=== PATIENT | male | born 1935 | race Caucasian/White ===

== ENCOUNTER 2018-08-16 17:50 | Inpatient (IN) | payer MEDICARE, MEDICAID ==
[~2018-08-16] VITALS: Ht 172.7 cm; Wt 64.6 kg
[~2018-08-16 17:50] MED LIST: AMLO10TA4 PO; CRANBERRY CAPSULE PO; DOCU-138 PO; DONE10TA11 PO; MEMA10TA2 PO; NEPVIT PO; NIAC1000 PO; OLAN7.5T3 PO; OSCAL D PO; TRAM50TA94 PO; VITAMIN B 1 PO
[2018-08-16 19:13] LABS: BASOPHILS % 0.6 % (0.0-2.0); EOSINOPHILS % 5.6 % (0.0-5.0); LYMPHOCYTES % 21.2 % (20.0-50.0); MEAN CORPUSCULAR HEMOGLOBIN 28.4 pg (28.0-32.0); MEAN CORPUSCULAR VOLUME 87.9 fL (80.0-94.0); MEAN PLATELET VOLUME 8.2 fl (7.4-10.4); MONOCYTES % 9.6 % (2.0-8.0); PLATELET 255 x1000/uL (130-400); RED BLOOD CELL COUNT 2.02 mill/uL (4.7-6.1)
[2018-08-16 19:18] LABS: CHLORIDE 117 mEq/L (98-107)
[2018-08-16 19:23] LABS: HEMOGLOBIN. 5.7 g/dL (14.0-18.0)
[2018-08-16 19:24] LABS: HEMATOCRIT. 17.8 % (42.0-52.0)
[2018-08-16 20:36] LABS: TOTAL IRON BINDING CAPACITY 275 ug/dL (250-450)
[2018-08-16] MEDS ORDERED: ACETAMINOPHEN 650MG/20.3ML UDC GT PRN (21:00)
[2018-08-16] MEDS ORDERED: DOCUSATE SODIUM 100MG CAPSULE PO PRN (21:00)
[2018-08-16] MEDS ORDERED: CLONIDINE 0.1MG TABLET PO PRN (21:00)
[2018-08-16] MEDS ORDERED: DIPHENHYDRAMINE 50MG/ML VIAL IV PRN (21:00)
[2018-08-16] MEDS ORDERED: ACETAMINOPHEN 650MG SUPP PR PRN (21:00)
[2018-08-16] MEDS ORDERED: NA PHOS,M-B/NA PHOS,DI-BA ENEMA 118ML PR PRN (21:00)
[2018-08-16] MEDS ORDERED: ACETAMINOPHEN 325MG TABLET PO PRN (21:00)
[2018-08-16] MEDS ORDERED: MAGNESIUM/ALUMINUM HYDROXIDE/SIMETHICONE 30ML UDC PO PRN (21:00)
[2018-08-16] MEDS ORDERED: IPRATROPIUM/ALBUTEROL 0.5-3(2.5)MG/3ML NEB INH PRN (21:00)
[2018-08-16] MEDS ORDERED: GUAIFENESIN 200MG/10ML SUGAR FREE UDC PO PRN (21:00)
[2018-08-16] MEDS ORDERED: ONDANSETRON HCL 4MG/2ML INJ IV PRN (21:00)
[2018-08-16 21:11] LABS: CLARITY URINE CLEAR (CLEAR); COLOR URINE YELLOW (YELLOW); KETONES URINE NEGATIVE (NEGATIVE); LEUKOCYTE ESTERASE URINE 2+ (NEGATIVE); NITRITE URINE NEGATIVE (NEGATIVE); OCCULT BLOOD URINE NEGATIVE (NEGATIVE); PROTEIN URINE NEGATIVE (NEGATIVE); SPECIFIC GRAVITY URINE 1.008 (1.005-1.030); UROBILINOGEN URINE 0.2 E.U./dL (0.2-1.0)
[2018-08-16 21:48] LABS: VITAMIN B12 SERUM 1189 pg/mL (211-911)
[2018-08-16 21:52] LABS: FOLIC ACID (FOLATE) SERUM > 20.00 ng/mL (>5.38)
[2018-08-16] MEDS ORDERED: SORBITOL 70% SOLN 30ML PO STA (22:26)
[2018-08-17 05:41] LABS: BASOPHILS % 0.7 % (0.0-2.0); EOSINOPHILS % 4.1 % (0.0-5.0); HEMATOCRIT. 27.3 % (42.0-52.0); HEMOGLOBIN. 9.3 g/dL (14.0-18.0); LYMPHOCYTES % 18.2 % (20.0-50.0); MEAN CORPUSCULAR HEMOGLOBIN 29.4 pg (28.0-32.0); MEAN CORPUSCULAR VOLUME 86.2 fL (80.0-94.0); MEAN PLATELET VOLUME 7.9 fl (7.4-10.4); MONOCYTES % 7.9 % (2.0-8.0); NEUTROPHILS % 69.1 % (40.0-76.0); PLATELET 245 x1000/uL (130-400); RED BLOOD CELL COUNT 3.17 mill/uL (4.7-6.1)
[2018-08-17 05:50] LABS: CHLORIDE 123 mEq/L (98-107)
[2018-08-17 05:57] LABS: TOTAL IRON BINDING CAPACITY 293 ug/dL (250-450)
[2018-08-17 05:59] LABS: HDL CHOLESTEROL 59 mg/dL (40-59); LDL CHOLESTEROL 77 mg/dL (5-100)
[2018-08-17 06:05] LABS: PROSTRATE SPECIFIC AG TOTAL 1.81 ng/mL (0.0-4.0)
[2018-08-17 08:45] LABS: CLARITY URINE CLEAR (CLEAR); COLOR URINE YELLOW (YELLOW); KETONES URINE NEGATIVE (NEGATIVE); LEUKOCYTE ESTERASE URINE 2+ (NEGATIVE); NITRITE URINE NEGATIVE (NEGATIVE); OCCULT BLOOD URINE 2+ (NEGATIVE); PROTEIN URINE TRACE (NEGATIVE); SPECIFIC GRAVITY URINE 1.007 (1.005-1.030); UROBILINOGEN URINE 0.2 E.U./dL (0.2-1.0)
[2018-08-17 09:06] LABS: *AMPHETAMINES SCREEN URINE NEGATIVE (NEGATIVE); *BARBITURATES SCREEN URINE NEGATIVE (NEGATIVE); *BENZODIAZEPINES SCREEN URINE NEGATIVE (NEGATIVE); *COCAINE SCREEN URINE NEGATIVE (NEGATIVE); CANNABINOID URINE SCREEN NEGATIVE (NEGATIVE); METHADONE URINE SCREEN NEGATIVE (NEGATIVE); OPIATES URINE SCREEN NEGATIVE (NEGATIVE); PHENCYCLIDINE URINE SCREEN NEGATIVE (NEGATIVE)
[2018-08-17 10:16] VITALS: BP 136/55
[2018-08-17] MEDS ORDERED: MOM MT (11:26)
[2018-08-17] MEDS ORDERED: QUET25TA PO (11:26)
[2018-08-17] MEDS ORDERED: THIA100T13 MT (11:26)
[2018-08-17] MEDS ORDERED: BISA10SU62 RC (11:26)
[2018-08-17] MEDS ORDERED: FEO PR (11:26)
[2018-08-17] MEDS ORDERED: FOLI1TAB87 MT (11:26)
[2018-08-17] MEDS ORDERED: NIAC100T3 PO (11:26)
[2018-08-17] MEDS ORDERED: ACET-2708 MT (11:26)
[2018-08-17] MEDS ORDERED: CARB1TAB2 MT (11:26)
[2018-08-17] MEDS ORDERED: DOCU-138 MT (11:26)
[2018-08-17] MEDS ORDERED: FOLI-43 MT (11:26)
[2018-08-17] MEDS ORDERED: ACET-2178 MT (11:26)
[2018-08-17] MEDS ORDERED: CALC-1030 MT (11:26)
[2018-08-17 12:00] VITALS: BP 141/61
[2018-08-17] MEDS: SODIUM CHLORIDE 0.9% INJ 3ML FLUSH IVF SCH ×2 (12:18→21:05)
[2018-08-17 16:00] VITALS: BP 116/50
[2018-08-17] MEDS: DEXTROSE 5% WATER 1,000 ML IV SCH (17:52)
[2018-08-17 20:00] VITALS: BP 115/53
[2018-08-17] MEDS ORDERED: DEXTROSE 50% WATER 50ML SYRINGE IV PRN (23:45)
[2018-08-18] VITALS (7 sets, daily range): BP systolic 108–132; BP diastolic 48–61
[2018-08-18] MEDS: DEXTROSE 5% WATER 1,000 ML IV SCH ×2 (06:00→17:49)
[2018-08-18] MEDS: SODIUM CHLORIDE 0.9% INJ 3ML FLUSH IVF SCH ×3 (06:00→21:36)
[2018-08-18] MEDS: BLOOD SUGAR DIAGNOSTIC STRIP TEST SCH ×4 (06:07→21:29)
[2018-08-18] MEDS: INSULIN LISPRO 100 UNITS/ML SUBCUT SCH ×4 (06:07→21:36)
[2018-08-18 06:55] LABS: BASOPHILS % 0.6 % (0.0-2.0); EOSINOPHILS % 3.9 % (0.0-5.0); HEMOGLOBIN. 8.1 g/dL (14.0-18.0); LYMPHOCYTES % 18.1 % (20.0-50.0); MEAN CORPUSCULAR HEMOGLOBIN 29.1 pg (28.0-32.0); MEAN CORPUSCULAR VOLUME 85.9 fL (80.0-94.0); MEAN PLATELET VOLUME 7.7 fl (7.4-10.4); MONOCYTES % 8.4 % (2.0-8.0); PLATELET 229 x1000/uL (130-400); RED BLOOD CELL COUNT 2.79 mill/uL (4.7-6.1); RED CELL DISTRIBUTION WIDTH 14.9 % (11.6-14.6)
[2018-08-19 04:00] VITALS: BP 115/63
[2018-08-19] MEDS: SODIUM CHLORIDE 0.9% INJ 3ML FLUSH IVF SCH ×3 (05:49→21:47)
[2018-08-19] MEDS: BLOOD SUGAR DIAGNOSTIC STRIP TEST SCH ×4 (06:29→21:44)
[2018-08-19] MEDS: INSULIN LISPRO 100 UNITS/ML SUBCUT SCH ×4 (06:29→21:00)
[2018-08-19 08:00] VITALS: BP 139/52
[2018-08-19] MEDS: DEXTROSE 5% WATER 1,000 ML IV SCH (09:18)
[2018-08-19 12:00] VITALS: BP 100/46
[2018-08-19 16:00] VITALS: BP 101/46
[2018-08-19 20:00] VITALS: BP 116/53
[2018-08-20] VITALS: BP 116/53
[2018-08-20] MEDS: DEXTROSE 5% WATER 1,000 ML IV SCH ×2 (00:08→13:16)
[2018-08-20 04:00] VITALS: BP 121/52
[2018-08-20] MEDS: SODIUM CHLORIDE 0.9% INJ 3ML FLUSH IVF SCH ×2 (06:42→15:25)
[2018-08-20] MEDS: BLOOD SUGAR DIAGNOSTIC STRIP TEST SCH ×3 (06:58→17:10)
[2018-08-20] MEDS: INSULIN LISPRO 100 UNITS/ML SUBCUT SCH ×3 (06:59→17:40)
[2018-08-20 09:17] LABS: BASOPHILS % 0.5 % (0.0-2.0); EOSINOPHILS % 6.1 % (0.0-5.0); HEMATOCRIT. 25.8 % (42.0-52.0); HEMOGLOBIN. 8.7 g/dL (14.0-18.0); LYMPHOCYTES % 17.1 % (20.0-50.0); MEAN CORPUSCULAR HEMOGLOBIN 29.4 pg (28.0-32.0); MEAN CORPUSCULAR VOLUME 87.6 fL (80.0-94.0); MEAN PLATELET VOLUME 7.8 fl (7.4-10.4); MONOCYTES % 7.3 % (2.0-8.0); PLATELET 225 x1000/uL (130-400); RED BLOOD CELL COUNT 2.94 mill/uL (4.7-6.1); RED CELL DISTRIBUTION WIDTH 14.1 % (11.6-14.6)
[2018-08-20 09:24] LABS: CHLORIDE 117 mEq/L (98-107)
[2018-08-20 12:00] VITALS: BP 115/58
[2018-08-20 16:00] VITALS: BP 124/50
[2018-08-20 18:48] VITALS: BP 124/50
[2018-08-20 20:00] VITALS: BP 111/48
[2018-08-21] MEDS ORDERED: DOCUSATE SODIUM 250MG CAPSULE PO SCH (13:00)
== END 2018-08-20 21:45 | DRG 682 ==
LOC: ER 17:50 → 8WST 20:15 → EDBEDREQ 20:19 → EDBEDREQTM 20:19 → ENRESERV 08-17 07:43
PROVIDERS: ADMIT Family Medicine; ATTEND Family Medicine
PROC: 30233N1 Transfusion of Nonautologous Red Blood Cells into Peripheral Vein, Percutaneous Approach (ICD-10-PCS; principal; 2018-08-16)
DX: N17.9 Acute kidney failure, unspecified (principal); E43 Unspecified severe protein-calorie malnutrition; E87.0 Hyperosmolality and hypernatremia; D50.9 Iron deficiency anemia, unspecified; I12.9 Hypertensive chronic kidney disease with stage 1 through stage 4 chronic kidney disease, or unspecified chronic kidney disease; E78.5 Hyperlipidemia, unspecified; E55.9 Vitamin D deficiency, unspecified; G20 Parkinson's disease; F03.90 Unspecified dementia, unspecified severity, without behavioral disturbance, psychotic disturbance, mood disturbance, and anxiety; E11.22 Type 2 diabetes mellitus with diabetic chronic kidney disease; N18.9 Chronic kidney disease, unspecified; F31.9 Bipolar disorder, unspecified; J44.9 Chronic obstructive pulmonary disease, unspecified; R47.02 Dysphasia; Z68.27 Body mass index [BMI] 27.0-27.9, adult
CPT/HCPCS: 36415; 71045; 76770; 80048; 80061; 80305; 82607; 82728; 82746; 82962; 83540; 83550; 83880; 84153; 84484; 85044; 86850; 86900; 86920; 93005; 99285; J1815; J7040; J7070; P9016; P9021; A4315; G0103

== ENCOUNTER 2019-06-06 22:28 | Inpatient (IN) | payer MEDICARE, MEDICAID ==
[~2019-06-06] VITALS: Ht 172.7 cm; Wt 58.5 kg
[2019-06-06 21:00] VITALS: BP 131/69
[~2019-06-06 22:28] MED LIST changes: +BISA10SU62 RC; +CALC-1030 MT; +CARB1TAB2 MT; +DOCU-138 MT; -DOCU-138 PO; +FEO PR; +FOLI-43 MT; +FOLI1TAB87 MT; +MOM MT; -NEPVIT PO; -NIAC1000 PO; +NIAC100T3 PO; -OLAN7.5T3 PO; -OSCAL D PO; +THIA100T13 MT; +TOPUD MT; -TRAM50TA94 PO; -VITAMIN B 1 PO
[2019-06-06] MEDS ORDERED: ACETAMINOPHEN 325MG TABLET PO PRN (23:00)
[2019-06-06] MEDS ORDERED: CLONIDINE 0.1MG TABLET PO PRN (23:00)
[2019-06-06] MEDS ORDERED: RISPERIDONE 0.5MG TABLET PO SCH (23:00)
[2019-06-06] MEDS ORDERED: DEXTROSE 50% WATER 50ML SYRINGE IV PRN (23:00)
[2019-06-06] MEDS ORDERED: ENOXAPARIN 40MG/0.4ML SYR SUBCUT SCH (23:00)
[2019-06-07] VITALS: BP 131/62
[2019-06-07 04:00] VITALS: BP 104/51
[2019-06-07] MEDS: INSULIN LISPRO 100 UNITS/ML SUBCUT SCH ×4 (06:31→21:00)
[2019-06-07] MEDS: BLOOD SUGAR DIAGNOSTIC STRIP TEST SCH ×4 (06:31→21:00)
[2019-06-07 07:47] LABS: BASOPHILS % 0.9 % (0.0-2.0); EOSINOPHILS % 5.6 % (0.0-5.0); HEMATOCRIT. 27.2 % (42.0-52.0); HEMOGLOBIN. 9.1 g/dL (14.0-18.0); LYMPHOCYTES % 20.5 % (20.0-50.0); MEAN CORPUSCULAR HEMOGLOBIN 28.7 pg (28.0-32.0); MEAN CORPUSCULAR VOLUME 85.8 fL (80.0-94.0); MEAN PLATELET VOLUME 8.1 fl (7.4-10.4); MONOCYTES % 8.5 % (2.0-8.0); NEUTROPHILS % 64.5 % (40.0-76.0); PLATELET 189 x1000/uL (130-400); RED BLOOD CELL COUNT 3.17 mill/uL (4.7-6.1); RED CELL DISTRIBUTION WIDTH 17.4 % (11.6-14.6)
[2019-06-07 08:00] VITALS: BP_SYST 101; BP_SYST 112; BP_DIAS 51; BP_DIAS 60
[2019-06-07] MEDS: FERROUS SULFATE 325MG TABLET PO SCH (08:34)
[2019-06-07] MEDS: CARBIDOPA/LEVODOPA 25/100MG TABLET CR PO SCH ×3 (08:34→17:42)
[2019-06-07] MEDS: AMLODIPINE 10MG TABLET PO SCH (08:35)
[2019-06-07] MEDS: ENOXAPARIN 30MG/0.3ML SYR SUBCUT SCH ×2 (08:35→09:00)
[2019-06-07] MEDS: FOLIC ACID 1MG TABLET PO SCH (08:35)
[2019-06-07] MEDS ORDERED: MEMANTINE HCL 5MG TABLET PO SCH (09:00)
[2019-06-07 12:00] VITALS: BP 122/64
[2019-06-07 16:00] VITALS: BP 108/57
[2019-06-07] MEDS: RISPERIDONE 1MG TABLET PO SCH (17:42)
[2019-06-07] MEDS: HALOPERIDOL LACTATE 5MG/ML VIAL IM PRN (17:53)
[2019-06-07 20:00] VITALS: BP 115/57
[2019-06-07] MEDS ORDERED: DONEPEZIL HCL 10MG TABLET PO SCH (21:00)
[2019-06-08] MEDS: RISPERIDONE 1MG TABLET PO SCH ×2 (06:00→17:52)
[2019-06-08] MEDS: BLOOD SUGAR DIAGNOSTIC STRIP TEST SCH ×5 (06:46→21:00)
[2019-06-08] MEDS: HALOPERIDOL LACTATE 5MG/ML VIAL IM PRN ×2 (06:46→12:17)
[2019-06-08] MEDS: INSULIN LISPRO 100 UNITS/ML SUBCUT SCH ×5 (06:47→21:00)
[2019-06-08] MEDS: CARBIDOPA/LEVODOPA 25/100MG TABLET CR PO SCH ×5 (08:31→17:00)
[2019-06-08] MEDS: FOLIC ACID 1MG TABLET PO SCH ×2 (08:31→09:00)
[2019-06-08] MEDS: FERROUS SULFATE 325MG TABLET PO SCH ×2 (08:31→09:00)
[2019-06-08] MEDS: AMLODIPINE 10MG TABLET PO SCH ×2 (08:35→09:00)
[2019-06-08] MEDS: ENOXAPARIN 30MG/0.3ML SYR SUBCUT SCH ×2 (08:36→12:17)
[2019-06-08 12:00] VITALS: BP 136/57
[2019-06-08 20:00] VITALS: BP 127/66
[2019-06-09] VITALS: BP 119/60
[2019-06-09 04:00] VITALS: BP 116/61
[2019-06-09] MEDS: RISPERIDONE 1MG TABLET PO SCH ×2 (05:21→17:29)
[2019-06-09] MEDS: BLOOD SUGAR DIAGNOSTIC STRIP TEST SCH ×4 (07:36→21:00)
[2019-06-09] MEDS: INSULIN LISPRO 100 UNITS/ML SUBCUT SCH ×4 (07:36→21:00)
[2019-06-09] MEDS: FERROUS SULFATE 325MG TABLET PO SCH (09:00)
[2019-06-09] MEDS: CARBIDOPA/LEVODOPA 25/100MG TABLET CR PO SCH ×3 (09:00→16:53)
[2019-06-09] MEDS: FOLIC ACID 1MG TABLET PO SCH (09:00)
[2019-06-09] MEDS: HALOPERIDOL LACTATE 5MG/ML VIAL IM PRN (09:00)
[2019-06-09] MEDS: ENOXAPARIN 30MG/0.3ML SYR SUBCUT SCH (09:00)
[2019-06-09] MEDS: AMLODIPINE 10MG TABLET PO SCH (09:00)
[2019-06-09 12:00] VITALS: BP 139/50
[2019-06-09 15:59] LABS: HEMATOCRIT 30.7 % (42.0-52.0); HEMOGLOBIN 10.3 g/dL (14.0-18.0); MEAN CORPUSCULAR VOLUME 86.8 fL (80.0-94.0); PLATELET 193 x1000/uL (130-400); RED BLOOD CELL COUNT 3.54 mill/uL (4.7-6.1); RED CELL DISTRIBUTION WIDTH 16.8 % (11.6-14.6)
[2019-06-09 16:00] VITALS: BP 124/52
[2019-06-09 16:11] LABS: CHLORIDE 115 mEq/L (98-107)
[2019-06-09 20:00] VITALS: BP 126/62
[2019-06-10] VITALS: BP 114/69
[2019-06-10 04:00] VITALS: BP 111/63
[2019-06-10] MEDS: RISPERIDONE 1MG TABLET PO SCH ×2 (06:33→17:11)
[2019-06-10] MEDS: BLOOD SUGAR DIAGNOSTIC STRIP TEST SCH ×4 (07:14→21:00)
[2019-06-10] MEDS: INSULIN LISPRO 100 UNITS/ML SUBCUT SCH ×4 (07:14→21:00)
[2019-06-10 08:00] VITALS: BP 139/63
[2019-06-10] MEDS: FOLIC ACID 1MG TABLET PO SCH (09:12)
[2019-06-10] MEDS: FERROUS SULFATE 325MG TABLET PO SCH (09:12)
[2019-06-10] MEDS: CARBIDOPA/LEVODOPA 25/100MG TABLET CR PO SCH ×3 (09:12→17:11)
[2019-06-10] MEDS: AMLODIPINE 10MG TABLET PO SCH (09:12)
[2019-06-10] MEDS: ENOXAPARIN 30MG/0.3ML SYR SUBCUT SCH (09:13)
[2019-06-10] MEDS: HALOPERIDOL LACTATE 5MG/ML VIAL IM PRN (09:53)
[2019-06-10 12:00] VITALS: BP 105/52
[2019-06-10 16:00] VITALS: BP 109/53
[2019-06-10 20:00] VITALS: BP 126/81
[2019-06-11] VITALS: BP 128/66
[2019-06-11 04:00] VITALS: BP 131/70
[2019-06-11] MEDS: RISPERIDONE 1MG TABLET PO SCH ×2 (05:33→17:26)
[2019-06-11] MEDS: HALOPERIDOL LACTATE 5MG/ML VIAL IM PRN (05:49)
[2019-06-11] MEDS: BLOOD SUGAR DIAGNOSTIC STRIP TEST SCH ×3 (06:36→17:20)
[2019-06-11] MEDS: INSULIN LISPRO 100 UNITS/ML SUBCUT SCH ×3 (07:50→17:27)
[2019-06-11 08:00] VITALS: BP 143/66
[2019-06-11] MEDS: FOLIC ACID 1MG TABLET PO SCH (08:46)
[2019-06-11] MEDS: AMLODIPINE 10MG TABLET PO SCH (08:46)
[2019-06-11] MEDS: ENOXAPARIN 30MG/0.3ML SYR SUBCUT SCH (08:46)
[2019-06-11] MEDS: FERROUS SULFATE 325MG TABLET PO SCH (08:46)
[2019-06-11] MEDS: CARBIDOPA/LEVODOPA 25/100MG TABLET CR PO SCH ×3 (08:47→17:00)
[2019-06-11 12:00] VITALS: BP 101/57
[2019-06-11] MEDS ORDERED: RISP1 PO (12:36)
[2019-06-11 15:11] VITALS: BP 101/57
[2019-06-11 16:00] VITALS: BP 110/65
== END 2019-06-11 18:10 | DRG 884 ==
LOC: 6EST 22:28
PROVIDERS: ADMIT Family Medicine Adult Medicine; ATTEND Internal Medicine Critical Care Medicine
DX: F03.91 Unspecified dementia, unspecified severity, with behavioral disturbance (principal); E44.0 Moderate protein-calorie malnutrition; Z68.1 Body mass index [BMI] 19.9 or less, adult; R41.0 Disorientation, unspecified; Z79.899 Other long term (current) drug therapy; Z88.8 Allergy status to other drugs, medicaments and biological substances
CPT/HCPCS: 36415; 71045; 80048; 82962; 83735; 85027; C1893; J1630; J1650

== ENCOUNTER 2019-10-18 12:47 | Inpatient (IN) | payer MEDICARE, MEDICAID ==
[~2019-10-18] VITALS: Ht 162.6 cm; Wt 48.3 kg
[~2019-10-18 12:47] MED LIST changes: +RISP1 PO
[2019-10-18] MEDS ORDERED: SODIUM CHLORIDE 0.9% 500 ML IV ONE (13:30)
[2019-10-18 13:58] LABS: BASOPHILS % 0.3 % (0.0-2.0); EOSINOPHILS % 0.2 % (0.0-5.0); HEMATOCRIT. 37.4 % (42.0-52.0); HEMOGLOBIN. 12.4 g/dL (14.0-18.0); LYMPHOCYTES % 12.7 % (20.0-50.0); MEAN CORPUSCULAR HEMOGLOBIN 29.3 pg (28.0-32.0); MEAN CORPUSCULAR VOLUME 88.4 fL (80.0-94.0); MEAN PLATELET VOLUME 8.2 fl (7.4-10.4); MONOCYTES % 6.1 % (2.0-8.0); NEUTROPHILS % 80.7 % (40.0-76.0); PLATELET 488 x1000/uL (130-400); RED BLOOD CELL COUNT 4.23 mill/uL (4.7-6.1); RED CELL DISTRIBUTION WIDTH 14.9 % (11.6-14.6)
[2019-10-18 14:06] LABS: CLARITY URINE CLOUDY (CLEAR); COLOR URINE YELLOW (YELLOW); KETONES URINE NEGATIVE (NEGATIVE); LEUKOCYTE ESTERASE URINE 3+ (NEGATIVE); NITRITE URINE POSITIVE (NEGATIVE); OCCULT BLOOD URINE 1+ (NEGATIVE); PROTEIN URINE TRACE (NEGATIVE); SPECIFIC GRAVITY URINE 1.013 (1.005-1.030); UROBILINOGEN URINE 0.2 E.U./dL (0.2-1.0)
[2019-10-18] MEDS ORDERED: SODIUM CHLORIDE 0.9% 1,000 ML IV NR (15:00)
[2019-10-18] MEDS: CEFTRIAXONE 1 G PREMIX 50 ML IV NR ×2 (15:24→16:01)
[2019-10-18] MEDS ORDERED: AZITHROMYCIN 500 MG in DEXT 5% WATER 250 ML IV NR (20:00)
[2019-10-19 01:10] VITALS: BP 129/63
[2019-10-19 01:18] VITALS: BP 129/63
[2019-10-19] MEDS ORDERED: DEXTROSE 50% WATER 50ML SYRINGE IV PRN (03:15)
[2019-10-19 04:00] VITALS: BP 104/54
[2019-10-19] MEDS: INSULIN LISPRO 100 UNITS/ML SUBCUT SCH ×4 (06:57→21:00)
[2019-10-19] MEDS: BLOOD SUGAR DIAGNOSTIC STRIP TEST SCH ×4 (06:57→21:40)
[2019-10-19] MEDS ORDERED: SODIUM CHLORIDE 0.45% 1,000 ML IV SCH (07:15)
[2019-10-19] MEDS ORDERED: AZITHROMYCIN 500 MG in DEXT 5% WATER 250 ML IV SCH (07:15)
[2019-10-19 08:00] VITALS: BP 130/66
[2019-10-19] MEDS ORDERED: AMLODIPINE 10MG TABLET PO SCH (09:00)
[2019-10-19] MEDS: CARBIDOPA/LEVODOPA 25/100MG TABLET PO SCH ×3 (09:16→17:00)
[2019-10-19 12:00] VITALS: BP 135/60
[2019-10-19 12:02] LABS: HEMATOCRIT 33.5 % (42.0-52.0); HEMOGLOBIN 10.8 g/dL (14.0-18.0); MEAN CORPUSCULAR VOLUME 89.9 fL (80.0-94.0); PLATELET 402 x1000/uL (130-400); RED BLOOD CELL COUNT 3.72 mill/uL (4.7-6.1)
[2019-10-19] MEDS: CEFTRIAXONE 1 G PREMIX 50 ML IV SCH (15:13)
[2019-10-19] MEDS: DEXTROSE 5% WATER 1,000 ML IV SCH ×2 (15:23→22:53)
[2019-10-19] MEDS: ENOXAPARIN 30MG/0.3ML SYR SUBCUT SCH (15:23)
[2019-10-19 15:42] VITALS: BP 115/53
[2019-10-19] MEDS: AZITHROMYCIN 250 MG in DEXT 5% WATER 250 ML IV SCH (21:40)
[2019-10-20] VITALS: BP 112/52
[2019-10-20 04:00] VITALS: BP 110/60
[2019-10-20 06:22] LABS: BASOPHILS % 0.6 % (0.0-2.0); HEMATOCRIT. 31.2 % (42.0-52.0); HEMOGLOBIN. 10.5 g/dL (14.0-18.0); LYMPHOCYTES % 15.6 % (20.0-50.0); MEAN CORPUSCULAR HEMOGLOBIN 29.5 pg (28.0-32.0); MEAN CORPUSCULAR VOLUME 87.8 fL (80.0-94.0); MEAN PLATELET VOLUME 8.4 fl (7.4-10.4); MONOCYTES % 5.9 % (2.0-8.0); NEUTROPHILS % 75.9 % (40.0-76.0); PLATELET 357 x1000/uL (130-400); RED BLOOD CELL COUNT 3.55 mill/uL (4.7-6.1); RED CELL DISTRIBUTION WIDTH 14.8 % (11.6-14.6)
[2019-10-20 06:27] LABS: CHLORIDE 135 mEq/L (98-107)
[2019-10-20] MEDS: BLOOD SUGAR DIAGNOSTIC STRIP TEST SCH ×4 (06:36→21:05)
[2019-10-20] MEDS: INSULIN LISPRO 100 UNITS/ML SUBCUT SCH ×4 (06:36→21:00)
[2019-10-20] MEDS: DEXTROSE 5% WATER 1,000 ML IV SCH ×3 (06:36→23:26)
[2019-10-20 08:00] VITALS: BP 108/59
[2019-10-20] MEDS: CARBIDOPA/LEVODOPA 25/100MG TABLET PO SCH ×3 (09:00→17:00)
[2019-10-20 12:00] VITALS: BP 115/63
[2019-10-20] MEDS: CEFTRIAXONE 1 G PREMIX 50 ML IV SCH (15:34)
[2019-10-20] MEDS: ENOXAPARIN 30MG/0.3ML SYR SUBCUT SCH (15:34)
[2019-10-20 16:00] VITALS: BP 118/65
[2019-10-20 20:00] VITALS: BP 136/80
[2019-10-20] MEDS: ASCORBIC ACID 500 MG TABLET PO SCH ×2 (21:00→21:05)
[2019-10-20] MEDS: HYDROXYCHLOROQUINE SULFATE 200MG TABLET PO SCH ×2 (21:00→21:04)
[2019-10-20] MEDS: AZITHROMYCIN 250 MG in DEXT 5% WATER 250 ML IV SCH (21:04)
[2019-10-21] VITALS: BP 114/60
[2019-10-21 04:00] VITALS: BP 139/88
[2019-10-21] MEDS: BLOOD SUGAR DIAGNOSTIC STRIP TEST SCH ×4 (06:33→21:00)
[2019-10-21] MEDS: DEXTROSE 5% WATER 1,000 ML IV SCH ×2 (06:33→14:39)
[2019-10-21] MEDS: INSULIN LISPRO 100 UNITS/ML SUBCUT SCH ×4 (06:33→21:00)
[2019-10-21 06:52] LABS: HEMATOCRIT. 32.7 % (42.0-52.0); HEMOGLOBIN. 10.8 g/dL (14.0-18.0); MEAN CORPUSCULAR HEMOGLOBIN 29.2 pg (28.0-32.0); MEAN CORPUSCULAR VOLUME 88.4 fL (80.0-94.0); PLATELET 357 x1000/uL (130-400); RED CELL DISTRIBUTION WIDTH 14.6 % (11.6-14.6)
[2019-10-21 08:00] VITALS: BP 128/66
[2019-10-21] MEDS: CARBIDOPA/LEVODOPA 25/100MG TABLET PO SCH ×4 (09:00→17:52)
[2019-10-21] MEDS: HYDROXYCHLOROQUINE SULFATE 200MG TABLET PO SCH ×3 (09:00→21:00)
[2019-10-21] MEDS: ZINC SULFATE 220 MG ( 50 ) CAPSULE PO SCH ×2 (09:00→10:24)
[2019-10-21] MEDS: ASCORBIC ACID 500 MG TABLET PO SCH ×3 (09:00→21:00)
[2019-10-21] MEDS ORDERED: LORAZEPAM 2MG/ML CPJ IV PRN (11:15)
[2019-10-21 11:49] LABS: PLATELET ESTIMATE NORMAL
[2019-10-21 12:00] VITALS: BP 119/76
[2019-10-21] MEDS: ENOXAPARIN 30MG/0.3ML SYR SUBCUT SCH (14:10)
[2019-10-21] MEDS: CEFTRIAXONE 1 G PREMIX 50 ML IV SCH (14:38)
[2019-10-21 16:00] VITALS: BP 137/56
[2019-10-21 20:00] VITALS: BP 127/88
[2019-10-21] MEDS: AZITHROMYCIN 250 MG in DEXT 5% WATER 250 ML IV SCH (21:00)
[2019-10-22] VITALS: BP 119/53
[2019-10-22] MEDS: DEXTROSE 5% WATER 1,000 ML IV SCH ×3 (00:21→17:01)
[2019-10-22 04:00] VITALS: BP 112/60
[2019-10-22] MEDS: BLOOD SUGAR DIAGNOSTIC STRIP TEST SCH ×4 (06:15→21:58)
[2019-10-22] MEDS: INSULIN LISPRO 100 UNITS/ML SUBCUT SCH ×4 (06:36→21:00)
[2019-10-22 08:00] VITALS: BP 137/90
[2019-10-22] MEDS: ZINC SULFATE 220 MG ( 50 ) CAPSULE PO SCH (09:02)
[2019-10-22] MEDS: CARBIDOPA/LEVODOPA 25/100MG TABLET PO SCH ×3 (09:02→17:47)
[2019-10-22] MEDS: HYDROXYCHLOROQUINE SULFATE 200MG TABLET PO SCH ×2 (09:02→21:47)
[2019-10-22] MEDS: ASCORBIC ACID 500 MG TABLET PO SCH ×2 (09:02→21:47)
[2019-10-22 12:00] VITALS: BP 110/55
[2019-10-22] MEDS: QUETIAPINE FUMARATE 25MG TABLET PO SCH ×2 (13:34→21:47)
[2019-10-22 13:40] LABS: HEMATOCRIT. 30.8 % (42.0-52.0); HEMOGLOBIN. 10.1 g/dL (14.0-18.0); MEAN CORPUSCULAR VOLUME 88.6 fL (80.0-94.0); MEAN PLATELET VOLUME 8.2 fl (7.4-10.4); PLATELET 335 x1000/uL (130-400); RED BLOOD CELL COUNT 3.48 mill/uL (4.7-6.1); RED CELL DISTRIBUTION WIDTH 14.7 % (11.6-14.6)
[2019-10-22 14:50] LABS: PLATELET ESTIMATE NORMAL
[2019-10-22] MEDS: CEFTRIAXONE 1 G PREMIX 50 ML IV SCH (15:00)
[2019-10-22 16:00] VITALS: BP 121/63
[2019-10-22] MEDS: ENOXAPARIN 30MG/0.3ML SYR SUBCUT SCH (17:46)
[2019-10-22 20:00] VITALS: BP 142/61
[2019-10-22] MEDS: AZITHROMYCIN 250 MG in DEXT 5% WATER 250 ML IV SCH (21:00)
[2019-10-23 00:28] VITALS: BP 137/66
[2019-10-23] MEDS: DEXTROSE 5% WATER 1,000 ML IV SCH ×4 (01:21→22:12)
[2019-10-23 04:00] VITALS: BP 150/80
[2019-10-23] MEDS: BLOOD SUGAR DIAGNOSTIC STRIP TEST SCH ×4 (06:17→21:00)
[2019-10-23] MEDS: INSULIN LISPRO 100 UNITS/ML SUBCUT SCH ×4 (06:52→21:00)
[2019-10-23 07:39] LABS: HEMATOCRIT. 33.8 % (42.0-52.0); MEAN CORPUSCULAR HEMOGLOBIN 29.1 pg (28.0-32.0); MEAN CORPUSCULAR VOLUME 89.6 fL (80.0-94.0); MEAN PLATELET VOLUME 8.5 fl (7.4-10.4); PLATELET 368 x1000/uL (130-400); RED BLOOD CELL COUNT 3.77 mill/uL (4.7-6.1); RED CELL DISTRIBUTION WIDTH 14.8 % (11.6-14.6)
[2019-10-23 08:00] VITALS: BP 129/65
[2019-10-23] MEDS: CARBIDOPA/LEVODOPA 25/100MG TABLET PO SCH ×3 (09:51→17:59)
[2019-10-23] MEDS: QUETIAPINE FUMARATE 25MG TABLET PO SCH ×2 (09:51→22:12)
[2019-10-23] MEDS: ZINC SULFATE 220 MG ( 50 ) CAPSULE PO SCH (09:51)
[2019-10-23] MEDS: HYDROXYCHLOROQUINE SULFATE 200MG TABLET PO SCH ×2 (09:51→22:11)
[2019-10-23] MEDS: ASCORBIC ACID 500 MG TABLET PO SCH ×2 (09:51→22:11)
[2019-10-23 12:00] VITALS: BP 142/73
[2019-10-23 12:05] LABS: PLATELET ESTIMATE NORMAL
[2019-10-23] MEDS: CEFTRIAXONE 1 G PREMIX 50 ML IV SCH (15:16)
[2019-10-23 16:00] VITALS: BP 136/83
[2019-10-23] MEDS: CITRIC ACID/SODIUM CITRATE SOLN 30ML UDC PO SCH ×2 (16:20→17:59)
[2019-10-23] MEDS: ENOXAPARIN 30MG/0.3ML SYR SUBCUT SCH (16:21)
[2019-10-23 20:00] VITALS: BP 116/72
[2019-10-24] VITALS: BP 117/67
[2019-10-24 04:00] VITALS: BP 100/62
[2019-10-24] MEDS: INSULIN LISPRO 100 UNITS/ML SUBCUT SCH ×4 (06:17→21:00)
[2019-10-24] MEDS: BLOOD SUGAR DIAGNOSTIC STRIP TEST SCH ×4 (06:17→21:49)
[2019-10-24 08:00] VITALS: BP 142/96
[2019-10-24] MEDS: CITRIC ACID/SODIUM CITRATE SOLN 30ML UDC PO SCH ×3 (09:00→17:01)
[2019-10-24] MEDS: QUETIAPINE FUMARATE 25MG TABLET PO SCH (10:16)
[2019-10-24] MEDS: ASCORBIC ACID 500 MG TABLET PO SCH ×2 (10:16→21:50)
[2019-10-24] MEDS: ZINC SULFATE 220 MG ( 50 ) CAPSULE PO SCH (10:16)
[2019-10-24] MEDS: CARBIDOPA/LEVODOPA 25/100MG TABLET PO SCH ×3 (10:16→17:01)
[2019-10-24] MEDS: DEXTROSE 5% WATER 1,000 ML IV SCH ×2 (10:16→21:54)
[2019-10-24] MEDS: HYDROXYCHLOROQUINE SULFATE 200MG TABLET PO SCH ×2 (10:16→21:50)
[2019-10-24 12:00] VITALS: BP 110/65
[2019-10-24] MEDS: ENOXAPARIN 30MG/0.3ML SYR SUBCUT SCH (13:00)
[2019-10-24] MEDS: CEFTRIAXONE 1 G PREMIX 50 ML IV SCH (14:12)
[2019-10-24 16:00] VITALS: BP_SYST 112; BP_SYST 138; BP_DIAS 56; BP_DIAS 63
[2019-10-24 20:00] VITALS: BP 104/65
[2019-10-24] MEDS: QUETIAPINE FUMARATE 50MG TABLET PO SCH (21:50)
[2019-10-24 22:01] LABS: HEMATOCRIT. 26.8 % (42.0-52.0); HEMOGLOBIN. 9.1 g/dL (14.0-18.0); MEAN CORPUSCULAR HEMOGLOBIN 29.5 pg (28.0-32.0); MEAN CORPUSCULAR VOLUME 87.1 fL (80.0-94.0); MEAN PLATELET VOLUME 8.6 fl (7.4-10.4); PLATELET 260 x1000/uL (130-400); RED BLOOD CELL COUNT 3.08 mill/uL (4.7-6.1); RED CELL DISTRIBUTION WIDTH 14.7 % (11.6-14.6)
[2019-10-24 22:27] LABS: PLATELET ESTIMATE NORMAL
[2019-10-25] VITALS: BP 102/67
[2019-10-25 04:00] VITALS: BP 142/70
[2019-10-25] MEDS: BLOOD SUGAR DIAGNOSTIC STRIP TEST SCH ×4 (06:40→21:00)
[2019-10-25] MEDS: INSULIN LISPRO 100 UNITS/ML SUBCUT SCH ×4 (07:10→21:00)
[2019-10-25] MEDS: CITRIC ACID/SODIUM CITRATE SOLN 30ML UDC PO SCH ×6 (09:00→16:09)
[2019-10-25] MEDS: ASCORBIC ACID 500 MG TABLET PO SCH ×2 (09:52→22:44)
[2019-10-25] MEDS: QUETIAPINE FUMARATE 50MG TABLET PO SCH ×2 (09:52→22:45)
[2019-10-25] MEDS: CARBIDOPA/LEVODOPA 25/100MG TABLET PO SCH ×4 (09:52→16:09)
[2019-10-25] MEDS: ZINC SULFATE 220 MG ( 50 ) CAPSULE PO SCH (09:52)
[2019-10-25] MEDS: HYDROXYCHLOROQUINE SULFATE 200MG TABLET PO SCH (09:52)
[2019-10-25 09:55] LABS: BASOPHILS % 0.2 % (0.0-2.0); EOSINOPHILS % 0.8 % (0.0-5.0); HEMATOCRIT. 31.1 % (42.0-52.0); HEMOGLOBIN. 10.2 g/dL (14.0-18.0); LYMPHOCYTES % 8.8 % (20.0-50.0); MEAN CORPUSCULAR HEMOGLOBIN 28.8 pg (28.0-32.0); MEAN CORPUSCULAR VOLUME 87.7 fL (80.0-94.0); MEAN PLATELET VOLUME 8.8 fl (7.4-10.4); MONOCYTES % 6.1 % (2.0-8.0); NEUTROPHILS % 84.1 % (40.0-76.0); PLATELET 313 x1000/uL (130-400); RED BLOOD CELL COUNT 3.55 mill/uL (4.7-6.1); RED CELL DISTRIBUTION WIDTH 14.4 % (11.6-14.6)
[2019-10-25] MEDS ORDERED: SODIUM POLYSTYRENE SULFONATE 15 G/60 ML BOT PO NR (11:30)
[2019-10-25 12:00] VITALS: BP 124/88
[2019-10-25] MEDS: SODIUM CHLORIDE 0.45% 1,000 ML IV SCH (12:07)
[2019-10-25] MEDS: ENOXAPARIN 30MG/0.3ML SYR SUBCUT SCH (13:55)
[2019-10-25 16:00] VITALS: BP 113/52
[2019-10-25 20:00] VITALS: BP 127/59
[2019-10-26] VITALS: BP 105/48
[2019-10-26] MEDS: SODIUM CHLORIDE 0.45% 1,000 ML IV SCH ×3 (02:16→22:20)
[2019-10-26 04:00] VITALS: BP 104/53
[2019-10-26] MEDS: INSULIN LISPRO 100 UNITS/ML SUBCUT SCH ×4 (06:37→21:00)
[2019-10-26] MEDS: BLOOD SUGAR DIAGNOSTIC STRIP TEST SCH ×4 (06:37→21:59)
[2019-10-26 08:00] VITALS: BP 114/61
[2019-10-26] MEDS: CITRIC ACID/SODIUM CITRATE SOLN 30ML UDC PO SCH ×3 (08:46→16:41)
[2019-10-26] MEDS: CARBIDOPA/LEVODOPA 25/100MG TABLET PO SCH ×3 (08:46→16:41)
[2019-10-26] MEDS: ZINC SULFATE 220 MG ( 50 ) CAPSULE PO SCH (08:46)
[2019-10-26] MEDS: QUETIAPINE FUMARATE 50MG TABLET PO SCH ×2 (08:46→21:59)
[2019-10-26] MEDS: ASCORBIC ACID 500 MG TABLET PO SCH ×2 (08:46→21:59)
[2019-10-26 12:36] VITALS: BP 101/58
[2019-10-26] MEDS: ENOXAPARIN 30MG/0.3ML SYR SUBCUT SCH (14:01)
[2019-10-26 17:45] VITALS: BP 124/63
[2019-10-27] VITALS: BP 141/77
[2019-10-27 04:00] VITALS: BP 149/70
[2019-10-27] MEDS: BLOOD SUGAR DIAGNOSTIC STRIP TEST SCH ×4 (06:28→23:45)
[2019-10-27] MEDS: INSULIN LISPRO 100 UNITS/ML SUBCUT SCH ×4 (06:29→21:00)
[2019-10-27 08:00] VITALS: BP 142/71
[2019-10-27] MEDS: CITRIC ACID/SODIUM CITRATE SOLN 30ML UDC PO SCH ×3 (08:30→16:56)
[2019-10-27] MEDS: CARBIDOPA/LEVODOPA 25/100MG TABLET PO SCH ×3 (08:31→16:56)
[2019-10-27] MEDS: QUETIAPINE FUMARATE 50MG TABLET PO SCH (08:31)
[2019-10-27] MEDS: ZINC SULFATE 220 MG ( 50 ) CAPSULE PO SCH (08:31)
[2019-10-27] MEDS: ASCORBIC ACID 500 MG TABLET PO SCH ×2 (08:31→22:29)
[2019-10-27] MEDS: SODIUM CHLORIDE 0.45% 1,000 ML IV SCH (11:28)
[2019-10-27 12:53] VITALS: BP 133/71
[2019-10-27] MEDS: ENOXAPARIN 30MG/0.3ML SYR SUBCUT SCH (14:53)
[2019-10-27 16:59] VITALS: BP 114/55
[2019-10-27 20:00] VITALS: BP 146/67
[2019-10-28] VITALS: BP 139/78
[2019-10-28 04:00] VITALS: BP 133/68
[2019-10-28] MEDS: BLOOD SUGAR DIAGNOSTIC STRIP TEST SCH ×4 (06:09→21:43)
[2019-10-28] MEDS: INSULIN LISPRO 100 UNITS/ML SUBCUT SCH ×4 (07:10→21:00)
[2019-10-28 07:47] LABS: BASOPHILS % 0.5 % (0.0-2.0); EOSINOPHILS % 1.4 % (0.0-5.0); HEMATOCRIT. 26.1 % (42.0-52.0); HEMOGLOBIN. 8.6 g/dL (14.0-18.0); LYMPHOCYTES % 16.8 % (20.0-50.0); MEAN CORPUSCULAR VOLUME 87.8 fL (80.0-94.0); MEAN PLATELET VOLUME 8.9 fl (7.4-10.4); MONOCYTES % 11.2 % (2.0-8.0); NEUTROPHILS % 70.1 % (40.0-76.0); PLATELET 217 x1000/uL (130-400); RED BLOOD CELL COUNT 2.97 mill/uL (4.7-6.1); RED CELL DISTRIBUTION WIDTH 15.3 % (11.6-14.6)
[2019-10-28 09:26] VITALS: BP 136/68
[2019-10-28] MEDS: CARBIDOPA/LEVODOPA 25/100MG TABLET PO SCH ×3 (09:42→17:00)
[2019-10-28] MEDS: ASCORBIC ACID 500 MG TABLET PO SCH ×2 (09:42→20:57)
[2019-10-28] MEDS: ZINC SULFATE 220 MG ( 50 ) CAPSULE PO SCH (09:42)
[2019-10-28] MEDS: QUETIAPINE FUMARATE 25MG TABLET PO SCH ×2 (09:44→20:57)
[2019-10-28] MEDS: CITRIC ACID/SODIUM CITRATE SOLN 30ML UDC PO SCH ×3 (09:44→17:00)
[2019-10-28 11:54] VITALS: BP 117/60
[2019-10-28] MEDS: ENOXAPARIN 30MG/0.3ML SYR SUBCUT SCH (14:48)
[2019-10-28] MEDS ORDERED: SODIUM POLYSTYRENE SULFONATE 15 G/60 ML BOT PO SCH (15:00)
[2019-10-28 17:27] VITALS: BP 125/59
[2019-10-28 20:00] VITALS: BP 112/57
[2019-10-28] MEDS: SODIUM CHLORIDE 0.45% 1,000 ML IV SCH (20:47)
[2019-10-29] VITALS: BP 108/55
[2019-10-29 04:00] VITALS: BP 138/55
[2019-10-29] MEDS: BLOOD SUGAR DIAGNOSTIC STRIP TEST SCH ×4 (05:41→21:56)
[2019-10-29] MEDS: INSULIN LISPRO 100 UNITS/ML SUBCUT SCH ×4 (06:16→21:00)
[2019-10-29 08:00] VITALS: BP 132/54
[2019-10-29] MEDS: QUETIAPINE FUMARATE 25MG TABLET PO SCH ×2 (08:45→21:56)
[2019-10-29] MEDS: CITRIC ACID/SODIUM CITRATE SOLN 30ML UDC PO SCH ×3 (08:45→18:10)
[2019-10-29] MEDS: CARBIDOPA/LEVODOPA 25/100MG TABLET PO SCH ×3 (08:45→18:10)
[2019-10-29] MEDS: ZINC SULFATE 220 MG ( 50 ) CAPSULE PO SCH (08:45)
[2019-10-29] MEDS: ASCORBIC ACID 500 MG TABLET PO SCH ×2 (08:45→21:56)
[2019-10-29] MEDS ORDERED: CEPHALEXIN 250MG CAPSULE PO SCH (10:15)
[2019-10-29 12:00] VITALS: BP 124/72
[2019-10-29] MEDS: SODIUM CHLORIDE 0.45% 1,000 ML IV SCH ×2 (13:59→22:03)
[2019-10-29 16:00] VITALS: BP 120/69
[2019-10-29 16:18] LABS: CHLORIDE 118 mEq/L (98-107)
[2019-10-29] MEDS: ENOXAPARIN 30MG/0.3ML SYR SUBCUT SCH (16:31)
[2019-10-29] MEDS: CEPHALEXIN 250MG CAPSULE PO SCH (18:10)
[2019-10-29 20:00] VITALS: BP 136/56
[2019-10-30] VITALS: BP 142/68
[2019-10-30] MEDS: CEPHALEXIN 250MG CAPSULE PO SCH ×2 (00:18→08:45)
[2019-10-30 04:00] VITALS: BP 146/61
[2019-10-30] MEDS: BLOOD SUGAR DIAGNOSTIC STRIP TEST SCH ×5 (05:52→21:00)
[2019-10-30] MEDS: INSULIN LISPRO 100 UNITS/ML SUBCUT SCH ×4 (06:47→21:00)
[2019-10-30 08:00] VITALS: BP 93/60
[2019-10-30] MEDS: ZINC SULFATE 220 MG ( 50 ) CAPSULE PO SCH (08:45)
[2019-10-30] MEDS: ASCORBIC ACID 500 MG TABLET PO SCH ×2 (08:46→21:47)
[2019-10-30] MEDS: CITRIC ACID/SODIUM CITRATE SOLN 30ML UDC PO SCH ×3 (08:46→16:59)
[2019-10-30] MEDS: CARBIDOPA/LEVODOPA 25/100MG TABLET PO SCH ×3 (08:46→17:00)
[2019-10-30] MEDS: QUETIAPINE FUMARATE 25MG TABLET PO SCH ×2 (08:46→21:48)
[2019-10-30 12:00] VITALS: BP 127/62
[2019-10-30] MEDS: ENOXAPARIN 30MG/0.3ML SYR SUBCUT SCH (15:13)
[2019-10-30] MEDS: SODIUM CHLORIDE 0.45% 1,000 ML IV SCH (15:13)
[2019-10-30 16:00] VITALS: BP 90/66
[2019-10-30 20:00] VITALS: BP 141/72
[2019-10-31] VITALS (7 sets, daily range): BP systolic 137–159; BP diastolic 66–89
[2019-10-31] MEDS: SODIUM CHLORIDE 0.45% 1,000 ML IV SCH ×2 (01:57→14:40)
[2019-10-31] MEDS: INSULIN LISPRO 100 UNITS/ML SUBCUT SCH ×4 (06:42→21:00)
[2019-10-31] MEDS: BLOOD SUGAR DIAGNOSTIC STRIP TEST SCH ×4 (06:42→21:21)
[2019-10-31] MEDS: CITRIC ACID/SODIUM CITRATE SOLN 30ML UDC PO SCH ×3 (10:24→17:56)
[2019-10-31] MEDS: CARBIDOPA/LEVODOPA 25/100MG TABLET PO SCH ×3 (10:24→17:56)
[2019-10-31] MEDS: ASCORBIC ACID 500 MG TABLET PO SCH ×2 (10:24→21:21)
[2019-10-31] MEDS: QUETIAPINE FUMARATE 25MG TABLET PO SCH ×2 (10:24→21:21)
[2019-10-31] MEDS: ZINC SULFATE 220 MG ( 50 ) CAPSULE PO SCH (10:24)
[2019-10-31] MEDS: ENOXAPARIN 30MG/0.3ML SYR SUBCUT SCH (17:55)
[2019-10-31 18:26] LABS: BASOPHILS % 0.8 % (0.0-2.0); EOSINOPHILS % 1.6 % (0.0-5.0); HEMATOCRIT. 26.2 % (42.0-52.0); HEMOGLOBIN. 8.6 g/dL (14.0-18.0); LYMPHOCYTES % 21.4 % (20.0-50.0); MEAN CORPUSCULAR HEMOGLOBIN 29.1 pg (28.0-32.0); MEAN CORPUSCULAR VOLUME 88.3 fL (80.0-94.0); MEAN PLATELET VOLUME 8.8 fl (7.4-10.4); MONOCYTES % 7.6 % (2.0-8.0); NEUTROPHILS % 68.6 % (40.0-76.0); PLATELET 197 x1000/uL (130-400); RED BLOOD CELL COUNT 2.96 mill/uL (4.7-6.1); RED CELL DISTRIBUTION WIDTH 15.2 % (11.6-14.6)
[2019-11-01] VITALS: BP 127/68
[2019-11-01 04:00] VITALS: BP 112/68
[2019-11-01] MEDS: SODIUM CHLORIDE 0.45% 1,000 ML IV SCH (04:00)
[2019-11-01] MEDS: BLOOD SUGAR DIAGNOSTIC STRIP TEST SCH ×3 (06:05→20:46)
[2019-11-01] MEDS: INSULIN LISPRO 100 UNITS/ML SUBCUT SCH ×3 (06:30→20:46)
[2019-11-01 09:52] VITALS: BP 139/60
[2019-11-01] MEDS: CARBIDOPA/LEVODOPA 25/100MG TABLET PO SCH ×3 (10:26→17:29)
[2019-11-01] MEDS: ZINC SULFATE 220 MG ( 50 ) CAPSULE PO SCH (10:26)
[2019-11-01] MEDS: CITRIC ACID/SODIUM CITRATE SOLN 30ML UDC PO SCH ×3 (10:26→17:29)
[2019-11-01] MEDS: ASCORBIC ACID 500 MG TABLET PO SCH ×2 (10:26→20:46)
[2019-11-01] MEDS: QUETIAPINE FUMARATE 25MG TABLET PO SCH ×2 (10:27→20:46)
[2019-11-01 12:23] VITALS: BP 142/68
[2019-11-01 17:01] VITALS: BP 121/58
[2019-11-01] MEDS: ENOXAPARIN 30MG/0.3ML SYR SUBCUT SCH (17:25)
[2019-11-01] MEDS: DEXTROSE 5% WATER 1,000 ML IV SCH (17:27)
[2019-11-01 20:00] VITALS: BP 122/59
[2019-11-02] VITALS: BP 125/60
[2019-11-02] MEDS: DEXTROSE 5% WATER 1,000 ML IV SCH ×2 (00:44→12:05)
[2019-11-02 04:00] VITALS: BP 118/59
[2019-11-02] MEDS: INSULIN LISPRO 100 UNITS/ML SUBCUT SCH ×4 (06:20→21:00)
[2019-11-02] MEDS: BLOOD SUGAR DIAGNOSTIC STRIP TEST SCH ×4 (06:20→21:00)
[2019-11-02 08:00] VITALS: BP 106/67
[2019-11-02] MEDS: CARBIDOPA/LEVODOPA 25/100MG TABLET PO SCH ×3 (09:04→16:43)
[2019-11-02] MEDS: QUETIAPINE FUMARATE 25MG TABLET PO SCH ×2 (09:04→22:02)
[2019-11-02] MEDS: CITRIC ACID/SODIUM CITRATE SOLN 30ML UDC PO SCH ×3 (09:04→16:43)
[2019-11-02] MEDS: ZINC SULFATE 220 MG ( 50 ) CAPSULE PO SCH (09:04)
[2019-11-02] MEDS: ASCORBIC ACID 500 MG TABLET PO SCH ×2 (09:05→22:02)
[2019-11-02 12:00] VITALS: BP 109/65
[2019-11-02 15:50] LABS: BASOPHILS % 0.7 % (0.0-2.0); EOSINOPHILS % 3.1 % (0.0-5.0); HEMATOCRIT. 24.8 % (42.0-52.0); HEMOGLOBIN. 8.1 g/dL (14.0-18.0); MEAN CORPUSCULAR HEMOGLOBIN 29.2 pg (28.0-32.0); MEAN CORPUSCULAR VOLUME 88.9 fL (80.0-94.0); MEAN PLATELET VOLUME 9.3 fl (7.4-10.4); MONOCYTES % 7.8 % (2.0-8.0); NEUTROPHILS % 70.4 % (40.0-76.0); PLATELET 148 x1000/uL (130-400); RED BLOOD CELL COUNT 2.79 mill/uL (4.7-6.1); RED CELL DISTRIBUTION WIDTH 15.6 % (11.6-14.6)
[2019-11-02 16:00] VITALS: BP 106/52
[2019-11-02] MEDS: ENOXAPARIN 30MG/0.3ML SYR SUBCUT SCH (16:43)
[2019-11-02 20:00] VITALS: BP 98/57
[2019-11-03] VITALS: BP 98/58
[2019-11-03 04:00] VITALS: BP 101/61
[2019-11-03] MEDS: DEXTROSE 5% WATER 1,000 ML IV SCH ×2 (06:18→16:34)
[2019-11-03] MEDS: BLOOD SUGAR DIAGNOSTIC STRIP TEST SCH ×4 (06:18→21:00)
[2019-11-03] MEDS: INSULIN LISPRO 100 UNITS/ML SUBCUT SCH ×4 (06:19→21:00)
[2019-11-03 08:00] VITALS: BP 109/56
[2019-11-03] MEDS: QUETIAPINE FUMARATE 25MG TABLET PO SCH ×2 (08:29→22:32)
[2019-11-03] MEDS: ZINC SULFATE 220 MG ( 50 ) CAPSULE PO SCH (08:29)
[2019-11-03] MEDS: CARBIDOPA/LEVODOPA 25/100MG TABLET PO SCH ×3 (08:29→18:06)
[2019-11-03] MEDS: CITRIC ACID/SODIUM CITRATE SOLN 30ML UDC PO SCH ×3 (08:29→18:07)
[2019-11-03] MEDS: ASCORBIC ACID 500 MG TABLET PO SCH ×2 (08:29→22:32)
[2019-11-03] MEDS: ENOXAPARIN 30MG/0.3ML SYR SUBCUT SCH (14:01)
[2019-11-03 16:00] VITALS: BP 135/53
[2019-11-03 20:00] VITALS: BP 124/74
[2019-11-04] VITALS: BP 130/56
[2019-11-04 04:00] VITALS: BP 103/56
[2019-11-04] MEDS: INSULIN LISPRO 100 UNITS/ML SUBCUT SCH ×4 (07:10→21:00)
[2019-11-04] MEDS: BLOOD SUGAR DIAGNOSTIC STRIP TEST SCH ×4 (07:43→21:59)
[2019-11-04 08:00] VITALS: BP 136/60
[2019-11-04] MEDS: CARBIDOPA/LEVODOPA 25/100MG TABLET PO SCH ×3 (10:52→14:13)
[2019-11-04] MEDS: ZINC SULFATE 220 MG ( 50 ) CAPSULE PO SCH (10:52)
[2019-11-04] MEDS: CITRIC ACID/SODIUM CITRATE SOLN 30ML UDC PO SCH ×3 (10:52→17:00)
[2019-11-04] MEDS: ASCORBIC ACID 500 MG TABLET PO SCH ×2 (10:52→21:59)
[2019-11-04] MEDS: DEXTROSE 5% WATER 1,000 ML IV SCH (10:53)
[2019-11-04] MEDS: QUETIAPINE FUMARATE 25MG TABLET PO SCH ×2 (10:53→21:59)
[2019-11-04 12:00] VITALS: BP 128/79
[2019-11-04] MEDS: ENOXAPARIN 30MG/0.3ML SYR SUBCUT SCH (14:14)
[2019-11-04 16:00] VITALS: BP 122/75
[2019-11-04 20:00] VITALS: BP 117/49
[2019-11-05] VITALS: BP 137/74
[2019-11-05 04:00] VITALS: BP 113/57
[2019-11-05] MEDS: DEXTROSE 5% WATER 1,000 ML IV SCH ×2 (06:02→08:48)
[2019-11-05 06:10] LABS: BASOPHILS % 0.4 % (0.0-2.0); EOSINOPHILS % 3.7 % (0.0-5.0); HEMATOCRIT. 24.2 % (42.0-52.0); HEMOGLOBIN. 8.2 g/dL (14.0-18.0); LYMPHOCYTES % 14.9 % (20.0-50.0); MEAN CORPUSCULAR HEMOGLOBIN 29.3 pg (28.0-32.0); MEAN PLATELET VOLUME 9.3 fl (7.4-10.4); MONOCYTES % 4.8 % (2.0-8.0); NEUTROPHILS % 76.2 % (40.0-76.0); PLATELET 144 x1000/uL (130-400); RED BLOOD CELL COUNT 2.79 mill/uL (4.7-6.1); RED CELL DISTRIBUTION WIDTH 15.7 % (11.6-14.6)
[2019-11-05] MEDS: INSULIN LISPRO 100 UNITS/ML SUBCUT SCH ×4 (06:12→21:00)
[2019-11-05] MEDS: BLOOD SUGAR DIAGNOSTIC STRIP TEST SCH ×4 (06:12→21:04)
[2019-11-05 08:00] VITALS: BP 136/61
[2019-11-05] MEDS: ASCORBIC ACID 500 MG TABLET PO SCH ×2 (09:23→21:04)
[2019-11-05] MEDS: CITRIC ACID/SODIUM CITRATE SOLN 30ML UDC PO SCH ×3 (09:23→16:20)
[2019-11-05] MEDS: ZINC SULFATE 220 MG ( 50 ) CAPSULE PO SCH (09:24)
[2019-11-05] MEDS: CARBIDOPA/LEVODOPA 25/100MG TABLET PO SCH ×3 (09:24→16:20)
[2019-11-05] MEDS: QUETIAPINE FUMARATE 25MG TABLET PO SCH ×2 (09:24→21:04)
[2019-11-05 12:00] VITALS: BP 132/76
[2019-11-05 16:00] VITALS: BP 136/52
[2019-11-05] MEDS: ENOXAPARIN 30MG/0.3ML SYR SUBCUT SCH (16:04)
[2019-11-05 20:00] VITALS: BP 160/51
[2019-11-06 04:00] VITALS: BP 144/63
[2019-11-06] MEDS: INSULIN LISPRO 100 UNITS/ML SUBCUT SCH ×4 (06:58→20:36)
[2019-11-06] MEDS: BLOOD SUGAR DIAGNOSTIC STRIP TEST SCH ×4 (06:58→20:36)
[2019-11-06 08:00] VITALS: BP 132/61
[2019-11-06] MEDS: ZINC SULFATE 220 MG ( 50 ) CAPSULE PO SCH (09:36)
[2019-11-06] MEDS: CITRIC ACID/SODIUM CITRATE SOLN 30ML UDC PO SCH ×3 (09:36→17:00)
[2019-11-06] MEDS: QUETIAPINE FUMARATE 25MG TABLET PO SCH ×2 (09:36→20:22)
[2019-11-06] MEDS: ASCORBIC ACID 500 MG TABLET PO SCH ×2 (09:36→20:22)
[2019-11-06] MEDS: CARBIDOPA/LEVODOPA 25/100MG TABLET PO SCH ×3 (09:36→18:00)
[2019-11-06 12:00] VITALS: BP 128/60
[2019-11-06] MEDS: ENOXAPARIN 30MG/0.3ML SYR SUBCUT SCH (14:40)
[2019-11-06 16:00] VITALS: BP 130/54
[2019-11-06 20:00] VITALS: BP 145/68
[2019-11-07] VITALS: BP 131/65
[2019-11-07 04:00] VITALS: BP_SYST 133; BP_SYST 142; BP_DIAS 72; BP_DIAS 90
[2019-11-07] MEDS: INSULIN LISPRO 100 UNITS/ML SUBCUT SCH ×4 (07:10→21:00)
[2019-11-07 08:00] VITALS: BP 135/59
[2019-11-07] MEDS: QUETIAPINE FUMARATE 25MG TABLET PO SCH ×2 (09:43→22:03)
[2019-11-07] MEDS: ASCORBIC ACID 500 MG TABLET PO SCH ×2 (09:43→22:03)
[2019-11-07] MEDS: CITRIC ACID/SODIUM CITRATE SOLN 30ML UDC PO SCH ×3 (09:43→17:00)
[2019-11-07] MEDS: CARBIDOPA/LEVODOPA 25/100MG TABLET PO SCH ×3 (09:43→17:00)
[2019-11-07] MEDS: ZINC SULFATE 220 MG ( 50 ) CAPSULE PO SCH (09:43)
[2019-11-07] MEDS: BLOOD SUGAR DIAGNOSTIC STRIP TEST SCH ×3 (11:40→20:07)
[2019-11-07 12:00] VITALS: BP 110/63
[2019-11-07] MEDS: ENOXAPARIN 30MG/0.3ML SYR SUBCUT SCH (14:00)
[2019-11-07 16:00] VITALS: BP 106/59
[2019-11-07 20:00] VITALS: BP 114/45
[2019-11-08 04:00] VITALS: BP 135/65
[2019-11-08] MEDS: BLOOD SUGAR DIAGNOSTIC STRIP TEST SCH ×4 (06:20→21:47)
[2019-11-08] MEDS: INSULIN LISPRO 100 UNITS/ML SUBCUT SCH ×4 (06:21→21:00)
[2019-11-08 08:00] VITALS: BP 151/64
[2019-11-08] MEDS: QUETIAPINE FUMARATE 25MG TABLET PO SCH ×2 (09:20→21:47)
[2019-11-08] MEDS: ZINC SULFATE 220 MG ( 50 ) CAPSULE PO SCH (09:20)
[2019-11-08] MEDS: ASCORBIC ACID 500 MG TABLET PO SCH ×2 (09:21→21:47)
[2019-11-08] MEDS: CARBIDOPA/LEVODOPA 25/100MG TABLET PO SCH ×3 (09:21→17:00)
[2019-11-08] MEDS: CITRIC ACID/SODIUM CITRATE SOLN 30ML UDC PO SCH ×3 (09:21→17:00)
[2019-11-08 12:00] VITALS: BP 134/68
[2019-11-08] MEDS: ENOXAPARIN 30MG/0.3ML SYR SUBCUT SCH (14:00)
[2019-11-08 16:00] VITALS: BP 128/69
[2019-11-09] VITALS (8 sets, daily range): BP systolic 114–153; BP diastolic 53–73
[2019-11-09 06:37] LABS: BASOPHILS % 0.8 % (0.0-2.0); EOSINOPHILS % 3.5 % (0.0-5.0); HEMATOCRIT. 28.2 % (42.0-52.0); HEMOGLOBIN. 9.2 g/dL (14.0-18.0); LYMPHOCYTES % 24.6 % (20.0-50.0); MEAN CORPUSCULAR HEMOGLOBIN 29.2 pg (28.0-32.0); MEAN CORPUSCULAR VOLUME 89.1 fL (80.0-94.0); MONOCYTES % 7.5 % (2.0-8.0); NEUTROPHILS % 63.6 % (40.0-76.0); PLATELET 237 x1000/uL (130-400); RED BLOOD CELL COUNT 3.16 mill/uL (4.7-6.1); RED CELL DISTRIBUTION WIDTH 16.2 % (11.6-14.6)
[2019-11-09] MEDS: BLOOD SUGAR DIAGNOSTIC STRIP TEST SCH ×4 (06:40→20:37)
[2019-11-09] MEDS: INSULIN LISPRO 100 UNITS/ML SUBCUT SCH ×4 (07:10→20:37)
[2019-11-09 07:28] LABS: PHOSPHORUS 3.5 mg/dL (2.5-4.9)
[2019-11-09] MEDS: CITRIC ACID/SODIUM CITRATE SOLN 30ML UDC PO SCH ×3 (09:00→16:53)
[2019-11-09] MEDS: ZINC SULFATE 220 MG ( 50 ) CAPSULE PO SCH (09:00)
[2019-11-09] MEDS: QUETIAPINE FUMARATE 25MG TABLET PO SCH ×2 (09:00→21:18)
[2019-11-09] MEDS: ASCORBIC ACID 500 MG TABLET PO SCH ×2 (09:00→21:18)
[2019-11-09] MEDS: CARBIDOPA/LEVODOPA 25/100MG TABLET PO SCH ×3 (09:00→16:53)
[2019-11-09] MEDS: ENOXAPARIN 30MG/0.3ML SYR SUBCUT SCH (13:23)
[2019-11-09] MEDS: SODIUM CHLORIDE 0.45% 1,000 ML IV SCH (16:14)
[2019-11-10] VITALS: BP 101/65
[2019-11-10 04:00] VITALS: BP 132/70
[2019-11-10] MEDS: SODIUM CHLORIDE 0.45% 1,000 ML IV SCH ×2 (05:06→21:45)
[2019-11-10] MEDS: BLOOD SUGAR DIAGNOSTIC STRIP TEST SCH ×4 (05:42→21:00)
[2019-11-10] MEDS: INSULIN LISPRO 100 UNITS/ML SUBCUT SCH ×4 (05:42→21:00)
[2019-11-10 08:00] VITALS: BP 119/50
[2019-11-10] MEDS: CITRIC ACID/SODIUM CITRATE SOLN 30ML UDC PO SCH ×3 (08:58→17:00)
[2019-11-10] MEDS: QUETIAPINE FUMARATE 25MG TABLET PO SCH ×3 (08:58→21:35)
[2019-11-10] MEDS: ASCORBIC ACID 500 MG TABLET PO SCH ×3 (08:58→21:35)
[2019-11-10] MEDS: ZINC SULFATE 220 MG ( 50 ) CAPSULE PO SCH (08:59)
[2019-11-10] MEDS: CARBIDOPA/LEVODOPA 25/100MG TABLET PO SCH ×3 (08:59→17:00)
[2019-11-10 12:00] VITALS: BP 128/54
[2019-11-10] MEDS: ENOXAPARIN 30MG/0.3ML SYR SUBCUT SCH (14:00)
[2019-11-10 16:00] VITALS: BP 122/77
[2019-11-10 20:00] VITALS: BP 140/48
[2019-11-11] VITALS: BP 156/54
[2019-11-11 04:00] VITALS: BP 107/79
[2019-11-11] MEDS: BLOOD SUGAR DIAGNOSTIC STRIP TEST SCH ×4 (06:02→20:51)
[2019-11-11] MEDS: INSULIN LISPRO 100 UNITS/ML SUBCUT SCH ×4 (07:10→20:51)
[2019-11-11 08:00] VITALS: BP 134/71
[2019-11-11] MEDS: ZINC SULFATE 220 MG ( 50 ) CAPSULE PO SCH (08:18)
[2019-11-11] MEDS: CITRIC ACID/SODIUM CITRATE SOLN 30ML UDC PO SCH ×3 (08:18→16:59)
[2019-11-11] MEDS: CARBIDOPA/LEVODOPA 25/100MG TABLET PO SCH ×3 (08:19→16:59)
[2019-11-11] MEDS: ASCORBIC ACID 500 MG TABLET PO SCH ×2 (08:19→21:09)
[2019-11-11] MEDS: QUETIAPINE FUMARATE 25MG TABLET PO SCH ×2 (08:19→21:09)
[2019-11-11] MEDS: DEXTROSE 5% WATER 1,000 ML IV SCH (11:50)
[2019-11-11 12:00] VITALS: BP 145/73
[2019-11-11] MEDS: ENOXAPARIN 30MG/0.3ML SYR SUBCUT SCH (13:13)
[2019-11-11 16:00] VITALS: BP 152/77
[2019-11-11 20:00] VITALS: BP 148/60
[2019-11-12] VITALS: BP 163/76
[2019-11-12 04:00] VITALS: BP 156/65
[2019-11-12] MEDS: DEXTROSE 5% WATER 1,000 ML IV SCH ×2 (04:29→23:00)
[2019-11-12] MEDS: BLOOD SUGAR DIAGNOSTIC STRIP TEST SCH ×4 (06:15→21:00)
[2019-11-12] MEDS: INSULIN LISPRO 100 UNITS/ML SUBCUT SCH ×4 (06:16→21:00)
[2019-11-12 08:00] VITALS: BP 157/68
[2019-11-12] MEDS: CITRIC ACID/SODIUM CITRATE SOLN 30ML UDC PO SCH ×3 (09:32→17:57)
[2019-11-12] MEDS: QUETIAPINE FUMARATE 25MG TABLET PO SCH ×2 (09:32→21:15)
[2019-11-12] MEDS: CARBIDOPA/LEVODOPA 25/100MG TABLET PO SCH ×3 (09:32→17:57)
[2019-11-12] MEDS: ASCORBIC ACID 500 MG TABLET PO SCH ×2 (09:32→21:15)
[2019-11-12] MEDS: ZINC SULFATE 220 MG ( 50 ) CAPSULE PO SCH (09:32)
[2019-11-12 12:00] VITALS: BP 114/69
[2019-11-12] MEDS: ENOXAPARIN 30MG/0.3ML SYR SUBCUT SCH (13:58)
[2019-11-12 16:00] VITALS: BP 108/65
[2019-11-12 20:00] VITALS: BP 137/41
[2019-11-13] VITALS: BP 140/45
[2019-11-13 04:00] VITALS: BP 148/88
[2019-11-13] MEDS: BLOOD SUGAR DIAGNOSTIC STRIP TEST SCH ×4 (06:15→20:15)
[2019-11-13] MEDS: INSULIN LISPRO 100 UNITS/ML SUBCUT SCH ×4 (06:15→21:00)
[2019-11-13 08:00] VITALS: BP 162/69
[2019-11-13] MEDS: QUETIAPINE FUMARATE 25MG TABLET PO SCH ×2 (09:34→20:15)
[2019-11-13] MEDS: ASCORBIC ACID 500 MG TABLET PO SCH ×2 (09:34→20:15)
[2019-11-13] MEDS: ZINC SULFATE 220 MG ( 50 ) CAPSULE PO SCH (09:34)
[2019-11-13] MEDS: CITRIC ACID/SODIUM CITRATE SOLN 30ML UDC PO SCH ×3 (09:34→17:39)
[2019-11-13] MEDS: CARBIDOPA/LEVODOPA 25/100MG TABLET PO SCH ×3 (09:34→17:39)
[2019-11-13 12:00] VITALS: BP 173/70
[2019-11-13] MEDS: ENOXAPARIN 30MG/0.3ML SYR SUBCUT SCH (13:04)
[2019-11-13 16:00] VITALS: BP 152/93
[2019-11-13] MEDS: DEXTROSE 5% WATER 1,000 ML IV SCH (16:13)
[2019-11-13 20:00] VITALS: BP 143/83
[2019-11-14] VITALS: BP 165/72
[2019-11-14 04:00] VITALS: BP 107/64
[2019-11-14] MEDS: BLOOD SUGAR DIAGNOSTIC STRIP TEST SCH ×2 (05:53→12:08)
[2019-11-14] MEDS: INSULIN LISPRO 100 UNITS/ML SUBCUT SCH ×2 (06:19→12:08)
[2019-11-14 06:27] LABS: BASOPHILS % 0.7 % (0.0-2.0); EOSINOPHILS % 4.1 % (0.0-5.0); HEMATOCRIT. 31.9 % (42.0-52.0); HEMOGLOBIN. 10.5 g/dL (14.0-18.0); MEAN CORPUSCULAR HEMOGLOBIN 29.3 pg (28.0-32.0); MEAN CORPUSCULAR VOLUME 89.1 fL (80.0-94.0); MEAN PLATELET VOLUME 8.8 fl (7.4-10.4); MONOCYTES % 8.1 % (2.0-8.0); NEUTROPHILS % 64.1 % (40.0-76.0); PLATELET 275 x1000/uL (130-400); RED BLOOD CELL COUNT 3.58 mill/uL (4.7-6.1); RED CELL DISTRIBUTION WIDTH 16.9 % (11.6-14.6)
[2019-11-14 08:00] VITALS: BP 100/61
[2019-11-14] MEDS: ASCORBIC ACID 500 MG TABLET PO SCH (09:49)
[2019-11-14] MEDS: CARBIDOPA/LEVODOPA 25/100MG TABLET PO SCH ×2 (09:49→12:23)
[2019-11-14] MEDS: QUETIAPINE FUMARATE 25MG TABLET PO SCH (09:49)
[2019-11-14] MEDS: ZINC SULFATE 220 MG ( 50 ) CAPSULE PO SCH (09:49)
[2019-11-14] MEDS: CITRIC ACID/SODIUM CITRATE SOLN 30ML UDC PO SCH ×2 (09:54→12:23)
[2019-11-14 12:00] VITALS: BP 98/64
[2019-11-14] MEDS: ENOXAPARIN 30MG/0.3ML SYR SUBCUT SCH (13:05)
[2019-11-14 14:16] VITALS: BP 98/64
[2019-11-14 16:00] VITALS: BP 100/66
== END 2019-11-14 17:30 | DRG 177 ==
LOC: ER 13:02 → 7EST 15:50 → EDBEDREQ 15:52 → EDBEDREQTM 15:52 → CANRESERV 20:19 → ENRESERV 20:19 → EDBEDREQ 20:44 → ENRESERV 23:15 → 7EST 10-22 13:38
PROVIDERS: ADMIT Internal Medicine; ATTEND Internal Medicine
DX: U07.1 COVID-19 (principal); J12.89 Other viral pneumonia; N17.0 Acute kidney failure with tubular necrosis; E87.2 Acidosis; E87.0 Hyperosmolality and hypernatremia; N39.0 Urinary tract infection, site not specified; J44.0 Chronic obstructive pulmonary disease with (acute) lower respiratory infection; E11.22 Type 2 diabetes mellitus with diabetic chronic kidney disease; E87.5 Hyperkalemia; D72.810 Lymphocytopenia; B95.61 Methicillin susceptible Staphylococcus aureus infection as the cause of diseases classified elsewhere; I12.9 Hypertensive chronic kidney disease with stage 1 through stage 4 chronic kidney disease, or unspecified chronic kidney disease; F31.9 Bipolar disorder, unspecified; G20 Parkinson's disease; N18.9 Chronic kidney disease, unspecified; F02.80 Dementia in other diseases classified elsewhere, unspecified severity, without behavioral disturbance, psychotic disturbance, mood disturbance, and anxiety; D64.9 Anemia, unspecified; Z78.9 Other specified health status; Z88.8 Allergy status to other drugs, medicaments and biological substances; Z79.899 Other long term (current) drug therapy
CPT/HCPCS: 36415; 71045; 80048; 80053; 80076; 81003; 82962; 83036; 83735; 84100; 85025; 85027; 87077; 87635; 93005; 99291; J0456; J0696; J1650; J2060; J7040; J7060; J7070; U0003-CS